=== PATIENT | male | born 1970 | race Hispanic/Latino ===

== ENCOUNTER 2024-01-05 14:29 | Emergency (ER) | payer OTHER, SELFPAY ==
[2024-01-05] VITALS (13 sets, daily range): BP systolic 119–182; BP diastolic 47–95; PULSE 76–104; RESP 12–18; TEMP 36.4; O2SAT 97–100
--- NOTE | ~2024-01-05 | CT_ITS ---
EXAMINATION: CT abdomen pelvis w con DATE: 01/05/2024 15:42 INDICATION: Epigastric abdominal pain. Nausea and vomiting. TECHNIQUE: Computed tomography (CT) of the abdomen and pelvis was performed with 100 mL Omnipaque 350 intravenous contrast. Automated exposure control and iterative reconstruction technique were employe d. The dose-length product was 211.93 mGy-cm. COMPARISON: None. FINDINGS: The visualized portions of the lung bases demonstrate minimal atelectasis. No pleural effus ion. The heart size is normal. No pericardial effusion. There is diffuse hepatic steatosis. The gallb ladder, spleen, pancreas, adrenal glands, and kidneys are normal. The prostate is mildly enlarged. Th ere are bilateral inguinal hernias containing fat. There are no dilated loops of bowel. The appendix is normal. There are no pathologically enlarged lymph nodes. There is no free intraperitoneal fluid. There are chronic bilateral L5 pars defects. There is 4 mm anterolisthesis of L5 on S1. IMPRESSION: 1. Diffuse hepatic steatosis. 2. Bilateral inguinal hernias containing fat. Reviewed, dictated and finalized at location E.
[2024-01-05 14:54] LABS: Hematocrit 41.7 % (42.0-52.0); Hemoglobin 14.4 g/dL (14.0-18.0); Mean Corpuscular HGB Conc 34.5 g/dl (32-36); Mean Corpuscular Hemoglobin 31.6 pg (26-34); Mean Corpuscular Volume 91.4 fl (80-100); Mean Platelet Volume 10.2 fl (7.4-10.4); Platelet Count Result 153 k/mm3 (150-375); Red Blood Count 4.56 M/mm3 (4.6-6.20); White Blood Count 8.1 K/mm3 (4.5-10.0)
[2024-01-05 15:05] LABS: Prothrombin Time 13.5 Seconds (11.1-14.7)
[2024-01-05 15:06] LABS: Partial Thromboplastin Time 24.2 Seconds (22.3-36.8)
[2024-01-05 15:07] LABS: Alanine Aminotransferase 145 U/L (6-50); Albumin Level 5.1 g/dL (3.5-5.1); Alkaline Phosphatase 121 U/L (38-126); Anion Gap 22 mmol/L (4-12); Aspartate Amino Transferase 242 U/L (17-59); Bilirubin,Total 1.5 mg/dL (0.2-1.3); Blood Urea Nitrogen 11 mg/dL (9-20); Calcium 9.7 mg/dL (8.4-10.2); Carbon Dioxide 19 mmol/L (22-30); Chloride 94 mmol/L (98-107); Estimated CRCL calculation 70 ml/min; Estimated Glomerular Filt Rate > 60; Glucose 156 mg/dL (65-110); Potassium 3.7 mmol/L (3.4-5.0); Sodium 135 mmol/L (137-145)
[2024-01-05 15:31] LABS: Band Neutrophils Percent 6 % (0-6); Basophils Absolute Manual 0.08 K/mm3 (0.0-0.1); Basophils Percent Manual 1 % (0-1); Lymphocytes Absolute Manual 0.16 K/mm3 (1.1-4.5); Monocytes Absolute Manual 0.72 K/mm3 (0.1-0.90); Monocytes Percent Manual 9 % (3-9); Neutrophils Absolute Manual 7.12 K/mm3 (1.3-6.7); Neutrophils Percent Manual 82 % (46-73); Platelet Estimate Adequate (Adequate); Schistocytes None Seen; Total Cells Counted 100
[2024-01-05] MEDS: SODIUM CHLORIDE 0.9% IV 1,000 ML 999 ML IV CONT ×2 (15:56→16:53)
[2024-01-05] MEDS: PROCHLORPERAZINE EDISYLATE 10 MG/2 ML VIAL IV PUSH (15:57)
[2024-01-05 16:29] LABS: Lipase 130 U/L (23-300)
--- NOTE | 2024-01-05 16:35 | ED.NAVMDI ---
HPI - Nausea/Vomiting/Diarrhea General Chief complaint: GI Bleed Stated complaint: vomiting blood Time Seen by Provider: 01/05/24 15:05 History of Present Illness HPI Narrative: Pt presents with numerous episodes of vomiting today. Pt denies diarrhea. Pt has some epigastric abdominal pain and a sore throat from the vomiting. Pt said had similar symptoms last week but got better and then returned today. Pt denies fever. Related Data Allergies Allergy/AdvReac Type Severity Reaction Status Date / Time No Known Allergies Allergy Verified 01/05/24 14:33 Review of Systems Review of Systems: All systems reviewed & are unremarkable except as noted in HPI and below Exam Const: General: healthy appearing Nutritional Appearance: well nourished Orientation/consciousness: patient oriented x3 Limitations: language barrier (translating service used) HENMT: Head: normal to inspection Mouth: Yes Normal oral and palatal mucosa present Eyes: Conjunctivae: conjunctivae normal Pupils: Equal, round and reactive pupils present Neck: Neck: normal visual inspection, no lymphadenopathy and no meningeal signs Resp: Effort & Inspection: normal respiratory effort Auscultation: clear to auscultation bilaterally Cardio: Rate: regular rate Rhythm: regular rhythm GI: GI Palp: Yes Soft to palpation and Yes Tenderness to palpation present (GI) (minimal epigastric tenderness) Auscultation: normal bowel sounds Skin: General skin exam: normal color Neuro: General: patient oriented x3, moves all extremities, no meningeal signs and no focal motor deficits Speech: normal speech Extrem: General: normal to inspection and no clubbing, cyanosis or edema Psych: Mental Status: mental status grossly normal Affect: normal affect Attitude: cooperative Course Vital Signs Vital signs: Vital Signs Temperature 97.6 F 01/05/24 14:27 Pulse Rate 79 01/05/24 14:27 Respiratory Rate 18 01/05/24 14:27 Blood Pressure 162/82 H 01/05/24 14:27 Pulse Oximetry 100 01/05/24 14:27 Oxygen Delivery Room Air 01/05/24 14:27 Temperature 97.6 F 01/05/24 14:27 Pulse Rate 98 01/05/24 19:03 Respiratory Rate 16 01/05/24 19:03 Blood Pressure 160/90 H 01/05/24 19:03 Pulse Oximetry 98 01/05/24 19:03 Oxygen Delivery Room Air 01/05/24 14:27 MDM - Nausea/Vomiting/Diarrhea MDM Narrative Medical decision making narrative: labs and ct look fine. Better with fluids and zofran/compazine,initially then vomited agin, goave additional zofran and then benadryl and vomiting stopped, likely gastroenteritis. ok to go home on zofran Differential Diagnosis Differential diagnosis: Likely food poisoning, gastroenteritis and other (pancreatitis SBO GERD among others) Lab Data 01/05/24 14:46 01/05/24 14:46 Labs: Lab Results 01/05/24 01/05/24 Range/Units 14:46 16:08 WBC 8.1 (4.5-10.0) K/mm3 RBC 4.56 L (4.6-6.20) M/mm3 Hgb 14.4 (14.0-18.0) g/dL Hct 41.7 L (42.0-52.0) % MCV 91.4 (80-100) fl MCH 31.6 (26-34) pg MCHC 34.5 (32-36) g/dl RDW 14.0 (11.5-14.5) % Plt Count 153 (150-375) k/mm3 MPV 10.2 (7.4-10.4) fl Immature Gran % (Auto) Not Reportable Neut % (Auto) Not Reportable Lymph % (Auto) Not Reportable [place] % (Auto) Not Reportable Eos % (Auto) Not Reportable Baso % (Auto) Not Reportable Lymph # (Auto) Not Reportable [place] # (Auto) Not Reportable Eos # (Auto) Not Reportable Baso # (Auto) Not Reportable Abs Immat Gran (auto) Not Reportable Absolute Neuts (auto) Not Reportable Absolute Nucleated RBC Not Reportable Total Counted 100 Neutrophils % (Manual) 82 H (46-73) % Band Neutrophils % 6 (0-6) % Lymphocytes % (Manual) 2.0 L (18-44) % Monocytes % (Manual) 9 (3-9) % Basophils % (Manual) 1 (0-1) % Nucleated RBC % Not Reportable Abs Neuts (Manual) 7.12 H (1.3-6.7) K/mm3 Abs Lymphs (Man
[2024-01-05] MEDS: ONDANSETRON INJ 4 MG/2 ML VIAL IV PUSH (16:53)
[2024-01-05] MEDS: diphenhydrAMINE HCl INJ 50 MG/ML VIAL IV PUSH (18:02)
== END 2024-01-05 19:50 | disposition home or self-care (01) ==
PROVIDERS: Emergency Provider Emergency Medicine
DX: K52.9 Noninfective gastroenteritis and colitis, unspecified (principal)
CPT/HCPCS: 36415; 74177; 80053; 83690; 85025; 85610; 85730; 86850; 86900; 86901; 96361; 96374; 96375; 99284; J0780; J1200; J2405; J7030; Q9967